=== PATIENT | female | born 1965 | race Asian ===

== ENCOUNTER → 2018-12-16 | Day surgery (SDC) | payer BC ==
[2018-12-16] VITALS (8 sets, daily range): BP systolic 95–132; BP diastolic 41–78
[~2018-12-16] VITALS: Ht 157.5 cm; Wt 44.9 kg
[~2018-12-16] MED LIST: BSS 15ml BTL ONE; BSS 500ml btl ONE; Dexamethasone 4mg/ml vial ONE; Goniotaire 2.5% Opth Soln - 15ml ONE; Indocyanine Green 25mg Inj INJ SCH; Maxitrol Opth Oint 3.5gm ONE; Midazolam 2mg/2ml Inj ONE; NS Irrig 1000ml ONE; Povidone-Iodine 5% opth solution ONE; Pred Forte 1% Opth Susp 1ml ONE; Proparacaine 0.5% Opth Soln 15ml RIGHT EYE SCH; Propofol 200mg/20ml IV ONE; Sterile Water Irrig 1000ml IRRIG ONE; fentaNYL 100 mcg/2 mL IV ONE; fentaNYL 100 mcg/2 mL IV PRN
--- NOTE | 2018-12-16 07:17 | NUR ---
ED Nurse Note: Received report from Citlalli TRUONG, pt resting on her bed with family member at the bed side. Pt walked into ED, referred by Dr Izaiah Virk for blood work up. Pt came in for right eye blurring and partial vision loss. Denies discharge and no redness. Dx of retinal detachment. Pt is AAO x4, ambulatory with non labored breathing.
--- NOTE | 2018-12-16 07:20 | NUR ---
ED Nurse Note: Blood specimen sent.
--- NOTE | 2018-12-16 07:30 | NUR ---
ED Nurse Note: Educated pt not to eat or drink anything. Pt verbalized understanding of teachings.
--- NOTE | 2018-12-16 07:30 | NUR ---
ED Nurse Note: Dr Harrison at the bed side.
[2018-12-16 07:34] LABS: ANION GAP 8 mmol/L (5-15); BLOOD UREA NITROGEN 11 mg/dL (7-18); CALCIUM 9.1 MG/DL (8.5-10.1); CARBON DIOXIDE 28 MMOL/L (21-32); CHLORIDE 106 MMOL/L (98-107); CREATININE 0.6 MG/DL (0.55-1.30); POTASSIUM 3.2 MMOL/L (3.5-5.1); SODIUM 142 MMOL/L (136-145)
[2018-12-16 07:36] LABS: BASOPHILS % (AUTO) 1.3 % (0.0-2.0); HEMOGLOBIN 12.5 G/DL (12.0-16.0); LYMPHOCYTES % (AUTO) 35.1 % (20.0-45.0); MEAN CORPUSCULAR VOLUME 90 FL (80-99); MONOCYTES % (AUTO) 6.8 % (1.0-10.0); NEUTROPHILS % (AUTO) 55.9 % (45.0-75.0); PLATELET COUNT 227 K/UL (150-450); RED BLOOD COUNT 4.23 M/UL (4.20-5.40); WHITE BLOOD COUNT 7.1 K/UL (4.8-10.8)
--- NOTE | 2018-12-16 07:53 | Pre-Procedure Note/Attestation ---
Pre-Procedure Note/Attestation Complete Prior to Procedure Planned Procedure: right Procedure Narrative: Acute RD OD Indications for Procedure Pre-Operative Diagnosis: Acute RRD OD Attestation I attest that I discussed the nature of the procedure; its benefits; risks and complications; and alternatives (and the risks and benefits of such alternatives ), prior to the procedure, with the patient (or the patient's legal account development representative). I attest that, if there was a reasonable possibility of needing a blood transfusion, the patient (or the patient's legal account development representative) was given the [facility] standardized written summary, pursuant to the Arthur Sofia Blood Safety Act ([place] Health and Safety Code # 1645, as amended). I attest that I re-evaluated the patient just prior to the surgery and that there has been no change in the patient's H&P, except as documented below: Izaiah Virk M.D., MD December 16, 2018 07:53
--- NOTE | 2018-12-16 07:54 | Operative Note - PDOC ---
Operative Note Operative Note Chief Complaint: Floaters and shadow OD Pre-op Diagnosis: Acute RRD OD Procedure: PPV/EL/SF6 (20% ) OD Post-op Diagnosis: same as pre-op Surgeon: Sully Anesthesia: local Specimen: none Complications: none Condition: stable Estimated Blood Loss: minimal Drains: none Implant(s) used?: No Indications for Procedure Indications for the procedure: The patient has had recent macula-threatening retinal detachment and presents today for surgery after review of the risks, benefits, alternative and signing informed consent into the medical chart. Description of Procedure Procedure performed: The patient was met in the pre-operative area where informed consent was reviewed. The operative eye was verified, marked and dilated. The patient was transferred to the operative suite , where cardiopulmonary monitoring was established and retrobulbar anesthetic was administered without complications. The eye was prepped and draped in sterile ophthalmic fashion. Under microscope visualization the 23 gauge infusion line was placed 4 millimeters inferotemporally. After visualization of the tip in the vitreous cavity, the infusion line was turned on. The superotemporal and superonasal cannulas were placed. Under BIOM visualization, peripheral and core vitrectomy was performed; there was mild vitreous hemorrhage from the break and avulsed vessel. Endocautery was used to achieve hemostasis. Further peripheral vitrectomy was performed and the vitreous was shaved from the break and area of lattice superonasally. Inspection of the periphery revealed no iatrogenic breaks. Drainage retinotomy was created superonasal and air-fluid exchange was performed. Endolaser was applied to the break, area of lattice, SN periphery and the retinotomy. SF6 gas was infused. The eye maintained normal intraocular pressure. Subconjunctival vancomycin and dexamethasone were administered. The lid speculum was removed. The eye was cleaned of prep and drape. Atropine drop and Maxitrol ointment was applied. A pressure patch was placed. The patient was turned over to the anesthesia team and transferred in stable condition to the PACU. Izaiah Virk M.D., MD December 16, 2018 07:54
--- NOTE | 2018-12-16 08:05 | NUR ---
Zuleyka cornelius in EDM - 12/16/18 at 0816 by ROMY ED Nurse Note: Report given to [facility] of Surgery Department.
--- NOTE | 2018-12-16 08:05 | NUR ---
ED Nurse Note: Report given to [facility] of Surgery Department.
--- NOTE | 2018-12-16 08:06 | NUR ---
ED Nurse Note: Mafia of Surgery states right eye medication should be given here in the ED for eye dilation.
[2018-12-16] MEDS: Phenylephrine 2.5% Op 2ml Soln RIGHT EYE SCH ×3 (08:22→08:32)
[2018-12-16] MEDS: Cyclopentolate 1% Opth Sol 2ml RIGHT EYE SCH ×3 (08:22→08:32)
--- NOTE | 2018-12-16 10:08 | Anethesia Preoperative Eval ---
Anesthesia Pre-op PMH/ROS General Date of Evaluation: December 16, 2018 Time of Evaluation: 09:35 Anesthesiologist: Dayna ASA Score: ASA 2 Mallampati Score Class I : Soft palate, uvula, fauces, pillars visible Class II: Soft palate, uvula, fauces visible Class III: Soft palate, base of uvula visible Class IV: Only hard plate visible Mallampati Classification: Class II Surgeon: Sully Diagnosis: R eye retinal detoucment Surgical Procedure: R eye PPV Anesthesia History: none Family History: no anesthesia problems Allergies: Uncoded Allergies: SEASONAL (Allergy, Unknown, 12/16/18) Medications: see eMAR Patient NPO?: Yes Past Medical History Cardiovascular: Denies: HTN, CAD, [place], valve dz, arrhythmia, other Pulmonary: Denies: asthma, COPD, MING, other Gastrointestinal/Genitourinary: Reports: GERD - mild; Denies: CRI, ESRD, other Neurologic/Psychiatric: Denies: dementia, CVA, depression/anxiety, TIA, other Endocrine: Denies: DM, hypothyroidism, steroids, other HEENT: Denies: cataract (L), cataract (R), glaucoma, APACHE (L), APACHE (R), other Hematology/Immune: Denies: anemia, DVT, bleeding disorder, other Musculoskeletal/Integumentary: Denies: OA, RA, DJD, DDD, edema, other PMH Narrative: as above PSxH Narrative: None Anesthesia Pre-op Phys. Exam Physician Exam Last Vital Signs Date Time Temp Pulse Resp B/P (MAP) Pulse Ox O2 Delivery O2 Flow Rate FiO2 12/16/18 09:15 98.2 75 19 128/70 100 Room Air Constitutional: NAD Neurologic: CN 2-12 intact Cardiovascular: RRR, no M/R/G Respiratory: CTA Gastrointestinal: S/NT/ND Airway Exam Mallampati Score: Class II MO: full Neck: flexible ROM: full Teeth: intact Dentures: no upper, no lower Anesthesia Pre-op A/P Labs Hematology Test 12/16/18 07:15 White Blood Count 7.1 K/UL (4.8-10.8) Red Blood Count 4.23 M/UL (4.20-5.40) Hemoglobin 12.5 G/DL (12.0-16.0) Hematocrit 38.0 % (37.0-47.0) Mean Corpuscular Volume 90 FL (80-99) Mean Corpuscular Hemoglobin 29.5 PG (27.0-31.0) Mean Corpuscular Hemoglobin Concent 32.8 G/DL (32.0-36.0) Red Cell Distribution Width 12.0 % (11.6-14.8) Platelet Count 227 K/UL (150-450) Mean Platelet Volume 7.3 FL (6.5-10.1) Neutrophils (%) (Auto) 55.9 % (45.0-75.0) Lymphocytes (%) (Auto) 35.1 % (20.0-45.0) Monocytes (%) (Auto) 6.8 % (1.0-10.0) Eosinophils (%) (Auto) 1.0 % (0.0-3.0) Basophils (%) (Auto) 1.3 % (0.0-2.0) Coagulation Test 12/16/18 07:15 Prothrombin Time 10.3 SEC (9.30-11.50) Prothromb Time International Ratio 1.0 (0.9-1.1) Activated Partial Thromboplast Time 25 SEC (23-33) Chemistry Test 12/16/18 07:15 Sodium Level 142 MMOL/L (136-145) Potassium Level 3.2 MMOL/L (3.5-5.1) L Chloride Level 106 MMOL/L (98-107) Carbon Dioxide Level 28 MMOL/L (21-32) Anion Gap 8 mmol/L (5-15) Blood Urea Nitrogen 11 mg/dL (7-18) Creatinine 0.6 MG/DL (0.55-1.30) Estimat Glomerular Filtration Rate > 60 mL/min (>60) Glucose Level 99 MG/DL (74-106) Calcium Level 9.1 MG/DL (8.5-10.1) Risk Assessment & Plan Assessment: ASA 2 Plan: MAC with retrobulbar block Status Change Before Surgery: Bk Pham MD December 16, 2018 10:08
--- NOTE | 2018-12-16 10:54 | Immediate Post-Op Evaluation ---
Immediate Post-Op Evalulation Immediate Post-Op Evalulation Procedure: R eye PPV membrane peel, fluid to gas exchange Date of Evaluation: December 16, 2018 Time of Evaluation: 10:53 IV Fluids: 500 Blood Products: none Estimated Blood Loss: min Urinary Output: none Blood Pressure Systolic: 107 Blood Pressure Diastolic: 58 Pulse Rate: 82 Respiratory Rate: 20 O2 Sat by Pulse Oximetry: 99 Temperature (Fahrenheit): 97.6 Pain Score (1-10): 1 Nausea: No Vomiting: No Complications none Patient Status: awake, patent, none Hydration Status: adequate Bk Mcintosh MD December 16, 2018 10:54
--- NOTE | 2018-12-16 11:09 | Cardiology Report ---
APPROVED REPORT EKG Measurement Heart [id number] Sinus rhythm with 1st degree AV block Possible Left atrial enlargement Nonspecific T wave abnormality Abnormal ECG
--- NOTE | 2018-12-16 12:31 | 48 Hour Post Anesthesia Eval ---
Post Anesthesia Evaluation Procedure: R eye PPV membrane peel, fluid to gas exchange Date of Evaluation: December 16, 2018 Time of Evaluation: 12:30 Blood Pressure Systolic: 116 0: 54 Pulse Rate: 62 Respiratory Rate: 18 Temperature (Fahrenheit): 97.8 O2 Sat by Pulse Oximetry: 98 Airway: patent Nausea: No Vomiting: No Pain Intensity: 1 Hydration Status: adequate Cardiopulmonary Status: stable Mental Status/LOC: patient returned to baseline Follow-up Care/Observations: n/a Post-Anesthesia Complications: none Follow-up care needed: ready to discharge Bk Mcintosh MD December 16, 2018 12:31
--- NOTE | 2018-12-16 13:19 | Emergency Room Report ---
History of Present Illness General Chief Complaint: Eye Problems Source: Patient Present Illness HPI Patient presents with increased discomfort to the right eye Reports that over the past 2 days has had increased blurring of her vision Sensation of floaters Denies any headache denies any chest pain denies any obvious trauma She reports that this started spontaneously denies any pain to the eye itself Allergies: Uncoded Allergies: SEASONAL (Allergy, Unknown, 12/16/18) Patient History Past Medical History: see triage record Pertinent Family History: none Last Menstrual Period: na Now: No : 0 Reviewed Nursing Documentation: PMH: Agreed; PSxH: Agreed Nursing Documentation-PMH Hx Neurological Problems: No - retinal detachment since 12/15 Review of Systems All Other Systems: negative except mentioned in HPI Physical Exam Vital Signs Date Time Temp Pulse Resp B/P (MAP) Pulse Ox O2 Delivery O2 Flow Rate FiO2 12/16/18 06:45 98.2 98 18 100 Room Air 12/16/18 08:00 132/78 Sp02 EP Interpretation: reviewed, normal General Appearance: well appearing, no apparent distress Head: normocephalic, atraumatic Eyes: bilateral eye PERRL, bilateral eye EOMI ENT: hearing grossly normal, normal pharynx, TMs + canals normal, uvula midline Neck: full range of motion, supple, no meningismus, no bony tend Respiratory: lungs clear, normal breath sounds, no rhonchi, no respiratory distress, no retraction, no accessory muscle use Cardiovascular #1: normal peripheral pulses, regular rate, rhythm, no edema, no gallop, no JVD, no murmur Gastrointestinal: normal bowel sounds, non tender, soft, no mass, no organomegaly, non-distended, no guarding, no hernia, no pulsatile mass, no rebound Genitourinary: no CVA tenderness Neurologic: oriented x3, responsive, energy systems laboratory director III-XII nml as tested, motor strength/ tone normal, sensory intact Psychiatric: mood/affect normal Skin: normal color, no rash, warm/dry, palpation normal Lymphatic: normal inspection, no adenopathy Medical Decision Making Diagnostic Impression: Primary Impression: Detached retina ER Course Given the patient's history and presentation 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 Reports that the patient does have findings consistent with retinal detachment Patient has further blood work initiated and will have further inpatient intervention Labs Test 12/16/18 07:15 White Blood Count 7.1 K/UL (4.8-10.8) Red Blood Count 4.23 M/UL (4.20-5.40) Hemoglobin 12.5 G/DL (12.0-16.0) Hematocrit 38.0 % (37.0-47.0) Mean Corpuscular Volume 90 FL (80-99) Mean Corpuscular Hemoglobin 29.5 PG (27.0-31.0) Mean Corpuscular Hemoglobin Concent 32.8 G/DL (32.0-36.0) Red Cell Distribution Width 12.0 % (11.6-14.8) Platelet Count 227 K/UL (150-450) Mean Platelet Volume 7.3 FL (6.5-10.1) Neutrophils (%) (Auto) 55.9 % (45.0-75.0) Lymphocytes (%) (Auto) 35.1 % (20.0-45.0) Monocytes (%) (Auto) 6.8 % (1.0-10.0) Eosinophils (%) (Auto) 1.0 % (0.0-3.0) Basophils (%) (Auto) 1.3 % (0.0-2.0) Prothrombin Time 10.3 SEC (9.30-11.50) Prothromb Time International Ratio 1.0 (0.9-1.1) Activated Partial Thromboplast Time 25 SEC (23-33) Sodium Level 142 MMOL/L (136-145) Potassium Level 3.2 MMOL/L (3.5-5.1) Chloride Level 106 MMOL/L (98-107) Carbon Dioxide Level 28 MMOL/L (21-32) Anion Gap 8 mmol/L (5-15) Blood Urea Nitrogen 11 mg/dL (7-18) Creatinine 0.6 MG/DL (0.55-1.30) Estimat Glomerular Filtration Rate > 60 mL/min (>60) Glucose Level 99 MG/DL (74-106) Calcium Level 9.1 MG/DL (8.5-10.1) EKG Diagnostic Results Rate: normal Rhythm: NSR ST Segments: no acute changes Rhythm Strip Diag. Results EP Interpretation: yes Rate: 77 Rhythm: NSR, no PVC's, no ectopy Last Vital Signs Date Time Temp Pulse Resp B/P (MAP) Pulse Ox O2 Delivery O2 Flow Rate FiO2 5/7/19 12:31 62 18 98 12/16/18 11:55 108/62 Room Air 12/16/18 11:25 97.6 Status: improved Disposition: HOME, SELF-CARE Condition: Improved Referrals: NOT CHOSEN IPA/MD,REFERRING (PCP) Patient Instructions: Vitrectomy, Care After Finn Hunter DO December 16, 2018 13:19
--- NOTE | 2018-12-17 15:45 | Pre-op HX & Phy Repo 2 SIG ---
DATE OF ADMISSION: 12/16/2018 PRESURGICAL INTERNAL MEDICINE HISTORY AND PHYSICAL DATE OF EVALUATION: 12/16/2018 REASON FOR EVALUATION: I was asked by Dr. Virk to see this 53-year-old female, who is going for surgery on the right eye. The patient has retinal detachment of right eye. The patient was examined. Chart was reviewed at [facility]. The patient has complained of the of the right eye, started yesterday. PAST MEDICAL HISTORY AND REVIEW OF SYSTEMS: Remarkable for no history of chest pain, palpitation, or heart attack. No history of respiratory problem. No diabetes. No history of anemia. No renal failure. No GI problem or bleeding. No thyroid problem. PAST SURGICAL HISTORY: None. FAMILY HISTORY: Father from dementia and hypertension. Mother alive. ALLERGIES: To pollen and dust. PRESENT MEDICATIONS: Multivitamin, vitamin D and calcium supplement. HABITS: No history of smoke or alcohol habit. PHYSICAL EXAMINATION: GENERAL: The patient is alert. VITAL SIGNS: Blood pressure 126/83, temperature 98.2, pulse 91 and regular, respirations 18, and O2 saturation 100%. The patient's weight 99 pounds and 5 feet 2 inches tall. SKIN: Dry, clear, warm. LYMPH NODES: Not enlarged. HEENT: Head normocephalic and atraumatic. Ears clear, no discharge. Eyes, full description per Dr. Virk. Mouth, clear and moist. Tongue is in midline, no discharge or ulcers. NECK: Supple. No jugular venous distention. No palpable mass. Carotids artery +2. CHEST: No deformity or asymmetry. LUNGS: Clear to auscultation and percussion. No rales or rhonchi. HEART: Normal sinus rhythm. No ectopy. No murmur. No S3 or S4. ABDOMEN: Soft and benign. Liver and spleen not enlarged. EXTREMITIES: No peripheral edema. No varicose veins. No calf tenderness. GENITOURINARY TRACT: Denies dysuria. No CVA tenderness. NERVOUS SYSTEM: No tremor or nystagmus. DIAGNOSTIC DATA: ECG, sinus rhythm, third-degree AV block, possible left atrial enlargement and nonspecific T-wave abnormality, rate is 91. LABORATORY DATA: Potassium 3.2, otherwise no new lab. The patient did not eat or drink from 9 p.m. yesterday. IMPRESSION: 1. Retinal detachment, right eye. 2. ECG changes, third-degree AV block. 3. Hypokalemia, 3.2. PLAN: Vitrectomy, endolaser of right eye, gas-fluid exchange per Dr. Roberto Virk. CONCLUSION: The patient is a 53-year-old female. Vital signs normal. ECG shows third-degree AV block with sinus rhythm, asymptomatic, and hypokalemia at 3.2 on laboratory. The patient is asymptomatic, did not eat or drink from last night. The patient's condition optimized for surgery. Thank very much, Dr. Virk, for privilege to participate in presurgical care of this interesting patient. Keila Harrison M.D. DR: LESA JOB#: [id number] CC: SHALONDA
== END | disposition home or self-care (01) ==
LOC: EMR 07:08 → SUR 09:15 → CANBEDREQ 10:39 → EMR 12:10
DX: H33.21 Serous retinal detachment, right eye (principal); I44.0 Atrioventricular block, first degree; Z81.8 Family history of other mental and behavioral disorders; Z82.49 Family history of ischemic heart disease and other diseases of the circulatory system; Z79.899 Other long term (current) drug therapy; E87.6 Hypokalemia; K21.9 Gastro-esophageal reflux disease without esophagitis
CPT/HCPCS: 36415; 67040; 80048; 85025; 85610; 85730; 93005; 99284; J1100; J2250; J2704; J3010; J3370; 94003; 94150